=== PATIENT | female | born 1955 | race Caucasian/White ===

== ENCOUNTER 2022-08-05 05:52 | Day surgery (SDC) | payer MEDICARE, BC ==
[2022-08-04 10:54] VITALS: BMI 32.9
[~2022-08-05 05:52] MED LIST: Fluorouracil 100 MG, Enoxaparin 25 MG, EPINEPHrine 0.3 MG in Ophthalmic Irrigation Solu... IRR SCH
[2022-08-05] MEDS ORDERED: fentaNYL PF 100 MCG/2 ML SYRINGE ONE (06:34)
[2022-08-05] MEDS ORDERED: Midazolam HCl 2 mg/2 ml Vial ONE (06:34)
[2022-08-05] MEDS ORDERED: Phenylephrine 2.5% Ophth Soln 5 ML BOT ONE (07:00)
[2022-08-05] MEDS ORDERED: Cyclopentolate 1% Opth Drop 2 ML BOT ONE (07:00)
[2022-08-05] MEDS ORDERED: Triamcinolone 40 MG/ML VIAL ONE (07:36)
[2022-08-05] MEDS ORDERED: PROPOFOL 200 MG/20 ML VIAL ONE (07:36)
[2022-08-05] MEDS ORDERED: Bupivacaine 0.75% 10 ML VIAL ONE (07:36)
[2022-08-05] MEDS ORDERED: Maxitrol 0.1% Opth Oint 3.5 GM TUBE ONE (07:36)
[2022-08-05] MEDS ORDERED: Lidocaine 4% PF 5 ML AMP ONE (07:36)
== END 2022-08-05 09:12 | disposition home or self-care (01) ==
LOC: SDC 05:52
PROVIDERS: ATTEND Ophthalmology Retina Specialist
PROC: 08T53ZZ Resection of Left Vitreous, Percutaneous Approach (ICD-10-PCS; principal; 2022-08-05)
PROC: 08QF3ZZ Repair Left Retina, Percutaneous Approach (ICD-10-PCS; 2022-08-05)
DX: H33.012 Retinal detachment with single break, left eye (principal); Z79.82 Long term (current) use of aspirin; Z79.899 Other long term (current) drug therapy; Z88.0 Allergy status to penicillin; Z88.2 Allergy status to sulfonamides; Z98.41 Cataract extraction status, right eye; Z98.42 Cataract extraction status, left eye; Z96.1 Presence of intraocular lens
CPT/HCPCS: 67025; J0171; J1650; J2250; J2704; J3301; J3490; J9190